=== PATIENT | female | born 1950 | race Caucasian/White ===

== ENCOUNTER 2017-04-27 09:59 | Emergency (ER) | payer SELFPAY ==
--- NOTE | 2017-04-27 10:23 | ED PDOC ---
HPI: Allergic Reaction Time Seen by Provider: 04/27/17 10:03 Chief Complaint (Nursing): Allergic Reaction Chief Complaint (Provider): rash History Per: Patient History/Exam Limitations: no limitations Onset/Duration Of Symptoms: Days (x 10) Possible Cause: Food (shrimp ) Associated Symptoms: Skin Rash, Itching. denies: Swelling, Dyspnea, Trouble Swallowing, Dizziness, Chest Pain Home/EMS Treatment: Benadryl, Other (tagamet) Additional Complaint(s): Elise Matthews is a 66 year old female, with a previous medical history of hypertension, who presents to the ED with complaints of an itchy rash to her arms, chest and back ongoing for 10 days. She denies any shortness of breath or throat swelling. Patient is speculating the allergen to be shrip but reports rash continued despite not eating shrimp since symptom onset. She states to taking benadryl and tagamet with no relief. PMD: none provided Past Medical History Reviewed: Historical Data, Nursing Documentation, Vital Signs Vital Signs: Last Vital Signs Temp 97.6 F 04/27/17 10:06 Pulse 102 H 04/27/17 10:06 Resp 20 04/27/17 10:06 BP 158/90 H 04/27/17 10:06 Pulse Ox 98 04/27/17 10:06 - Medical History PMH: HTN, Migraine Denies: Chronic Kidney Disease - Surgical History Surgical History: Appendectomy - Family History Family History: States: Unknown Family Hx - Home Medications Home Medications: Ambulatory Orders Medication Instructions Recorded Hydrochlorothiazide [HCTZ] 25 mg PO DAILY 04/26/16 Omeprazole 20 mg PO DAILY 04/26/16 amLODIPine [Norvasc] 5 mg PO DAILY 04/26/16 predniSONE [predniSONE Tab] 10 mg PO TID #15 tab 04/27/17 - Allergies Allergies/Adverse Reactions: Allergies Allergy/AdvReac Type Severity Reaction Status Date / Time lisinopril Allergy RASH Verified 04/27/17 10:12 Penicillins Allergy RASH Verified 04/27/17 10:12 Review of Systems ROS Statement: Except As Marked, All Systems Reviewed And Found Negative ENT: Negative for: Mouth Swelling, Throat Pain, Throat Swelling Respiratory: Negative for: Shortness of Breath Skin: Positive for: Rash (itchy to the bilateral arms, chest and back ) Physical Exam - Reviewed Nursing Documentation Reviewed: Yes Vital Signs Reviewed: Yes - Physical Exam Appears: Positive for: Well, Non-toxic, No Acute Distress Skin: Positive for: Warm, Dry, Rash (erythematous flat rash to the back, chest and bilateral arms.) ENT: Positive for: Normal ENT Inspection. Negative for: Pharyngeal Erythema, Tonsillar Swelling Cardiovascular/Chest: Positive for: Regular Rate, Rhythm Respiratory: Positive for: CNT, Normal Breath Sounds Neurologic/Psych: Positive for: Alert, Oriented - ECG O2 Sat by Pulse Oximetry: 98 (RA) Pulse Ox Interpretation: Normal Disposition - Clinical Impression Clinical Impression: Allergic reaction Doctor Will See Patient In The: Office Counseled Patient/Family Regarding: Studies Performed, Diagnosis, Need For Followup, Rx Given - Disposition Referrals: [facility] [Outside] Disposition: Routine/Home Disposition Time: 10:26 Condition: FAIR Prescriptions: predniSONE [predniSONE Tab] 10 mg PO TID #15 tab Instructions: General Allergic Reaction (ED) Print Language: SLOVENIAN MDMA - Impression/Plan/Differential Dx Note:: Initial Plan: * physical exam * disposition Scribe Attestation: Documented by Simin Contreras, acting as a scribe for Guillaume Salinas MD. Provider Scribe Attestation: All medical record entries made by the Scribe were at my direction and personally dictated by me. I have reviewed the chart and agree that the record accurately reflects my personal performance of the history, physical exam, medical decision making, and the department course for this patient. I have also personally directed, reviewed, and agree with the discharge instructions and disposition.
[2017-04-27 10:39] VITALS: BP 132/75; PULSE 85; RESP 14; TEMP 98; O2SAT 100
== END 2017-04-27 10:32 | disposition home or self-care (01) ==
LOC: H.ER 09:59
DX: T78.40XA Allergy, unspecified, initial encounter (principal); I10 Essential (primary) hypertension; Z88.0 Allergy status to penicillin